=== PATIENT | male | born 1965 | race Caucasian/White ===

== ENCOUNTER 2016-10-03 11:07 | Emergency (ER) | payer MEDICAID ==
[~2016-10-03 11:07] MED LIST: ASPIRIN81 MG PO; ATORVASTATIN CA40 M1 PO; BENAZEPRIL HYDR40 M1 PO; GLU5 PO; INDAPAMIDE2.5 MG PO; LOP600 PO; LOPRESSOR50 MG PO; METFORMIN HCL1000 MG PO; NIFEDIPINE ER60 MG PO; PEPCID40 MG PO
[2016-10-03 12:40] VITALS: BP 148/99
== END 2016-10-03 12:40 | disposition home or self-care (01) ==
LOC: ED 11:07
DX: M25.562 Pain in left knee (principal); M79.89 Other specified soft tissue disorders; E11.9 Type 2 diabetes mellitus without complications; I10 Essential (primary) hypertension; Z79.4 Long term (current) use of insulin
CPT/HCPCS: Q0092